=== PATIENT | male | born 1965 | race Asian ===

== ENCOUNTER 2019-04-20 23:30 | Emergency (ER) | payer OTHER ==
[~2019-04-20] VITALS: Ht 162.6 cm; Wt 79.4 kg
[2019-04-20 23:50] VITALS: BP 129/78; TEMP 97.3
[2019-04-21 00:20] LABS: PLATELET COUNT 203 K/uL (142-355)
[2019-04-21 00:24] LABS: POTASSIUM 3.5 mmol/L (3.6-5.2)
== END 2019-04-21 01:42 | disposition home or self-care (01) ==
LOC: ED 23:30
PROVIDERS: Family Medicine
DX: L25.9 Unspecified contact dermatitis, unspecified cause (principal); E87.6 Hypokalemia
CPT/HCPCS: 36415; 80053; 81000; 85027; 96372; 99282; J1885

== ENCOUNTER 2022-07-21 19:30 | Emergency (ER) | payer OTHER ==
[~2022-07-21] VITALS: Ht 162.6 cm; Wt 79.4 kg
[2022-07-21 19:34] VITALS: BP 122/67; TEMP 98
== END 2022-07-21 20:50 | disposition home or self-care (01) ==
LOC: ED 19:30
DX: K59.09 Other constipation (principal)
CPT/HCPCS: 99283

== ENCOUNTER 2022-07-28 16:00 | Outpatient (CLI) | payer OTHER | END 2022-07-28 19:35 | disposition home or self-care (01) | LOC: CT 16:00 | PROVIDERS: ATTEND Nurse Practitioner Family | DX: R10.84 Generalized abdominal pain (principal) ==